=== PATIENT | male | born 1960 | race African-American/Black ===

== ENCOUNTER 2018-05-04 17:53 | Emergency (ER) | payer OTHER ==
[~2018-05-04] VITALS: Ht 170.2 cm; Wt 80.0 kg
[~2018-05-04 17:53] MED LIST: HYDR12.529 PO
[2018-05-04 17:59] VITALS: BP 136/78
== END 2018-05-04 20:40 | disposition left against medical advice (07) ==
LOC: ER 17:53
DX: Z53.21 Procedure and treatment not carried out due to patient leaving prior to being seen by health care provider (principal)